=== PATIENT | male | born 1965 ===

== ENCOUNTER → 2017-08-31 11:07 | Emergency (ER) | payer BC ==
[2017-08-31 12:51] VITALS: BP 124/86
--- NOTE | 2017-08-31 12:58 | UC ---
Respiratory Complaint HPI - HPI Summary HPI Summary: Pt presents with a c/o productive cough, that worsens in recumbent position. Pt c/o subjective fever last night, chest and nasal congestion, and generalized malaise X 5 days. - History of Current Complaint Chief Complaint: UCRespiratory Stated Complaint: CHEST CONGESTION,COUGH Time Seen by Provider: 08/31/17 12:40 Hx Obtained From: Patient Onset/Duration: Gradual Onset, Lasting Days, Worse Since - onset Timing: Constant Severity Initially: Mild Severity Currently: Mild Pain Intensity: 0 Character: Cough: Productive Aggravating Factors: Exertion, Deep Breaths, Recumbent Position Alleviating Factors: Nothing Associated Signs And Symptoms: Positive: Fever, Chills, URI, Nasal Congestion - Risk Factors Pulmonary Embolism Risk Factors: Negative Cardiac Risk Factors: Hypertension Pseudomonas Risk Factors: Negative Tuberculosis Risk Factors: Negative - Allergies/Home Medications Allergies/Adverse Reactions: Allergies Allergy/AdvReac Type Severity Reaction Status Date / Time No Known Allergies Allergy Verified 08/31/17 12:43 PMH/Surg Hx/FS Hx/Imm Hx Previously Healthy: Yes Other History Of: Anticoagulant Therapy - ASA 81 mg a night. Negative For: HIV, Hepatitis B, Hepatitis C - Surgical History Surgical History: Yes Surgery Procedure, Year, and Place: shoulder surgery - Family History Known Family History: Positive: Cardiac Disease - Social History Occupation: Employed Full-time Lives: With Family Alcohol Use: Weekly Substance Use Type: None Smoking Status (MU): Never Smoked Tobacco Have You Smoked in the Last Year: No Review of Systems Constitutional: Fever, Chills, Fatigue Skin: Negative Eyes: Negative ENT: Sinus Congestion Respiratory: Cough Cardiovascular: Negative Gastrointestinal: Negative Genitourinary: Negative Motor: Negative Neurovascular: Negative Musculoskeletal: Myalgia Neurological: Negative Psychological: Negative Is Patient Immunocompromised?: No All Other Systems Reviewed And Are Negative: Yes Physical Exam Triage Information Reviewed: Yes Appearance: Ill-Appearing Vital Signs: Initial Vital Signs Temp 98.7 F 08/31/17 12:39 Pulse 88 08/31/17 12:39 Resp 20 08/31/17 12:39 BP 124/86 08/31/17 12:39 Pulse Ox 98 08/31/17 12:39 Vital Signs Reviewed: Yes Eye Exam: Normal ENT Exam: Other ENT: Positive: Nasal congestion Dental Exam: Normal Neck exam: Normal Respiratory Exam: Other Respiratory: Positive: Decreased breath sounds - bases Cardiovascular Exam: Normal Musculoskeletal Exam: Normal Neurological Exam: Normal Psychological Exam: Normal Skin Exam: Normal UC Diagnostic Evaluation - Laboratory O2 Sat by Pulse Oximetry: 98 Respiratory Course/Dx - Differential Dx/Diagnosis Differential Diagnosis/HQI/PQRI: Bronchitis, Influenza Provider Diagnoses: Bronchitis Discharge - Sign-Out/Discharge Documenting (check all that apply): Discharge - Discharge Plan Condition: Stable Disposition: HOME Prescriptions: Azithromycin TAB* [Zithromax TAB (Z-DEL) 250 mg #6 tabs] 2 tab PO .TODAY, THEN 1 DAILY #1 del Benzonatate CAP* [Tessalon 100 MG CAP*] 100 mg PO Q8H PRN #21 cap PRN Reason: Cough predniSONE TAB* [Deltasone TAB*] 30 mg PO DAILY #12 tab Patient Education Materials: Acute Bronchitis (ED) Referrals: Nupur Cardozo PRINCIPAL NETWORK ENGINEER [Primary Care Provider] - If Needed - Billing Disposition and Condition Condition: STABLE Disposition: HOME
== END | disposition home or self-care (01) ==
LOC: UCCORT 11:07
DX: J40 Bronchitis, not specified as acute or chronic (principal)
CPT/HCPCS: 99212; G0463

== ENCOUNTER 2019-04-23 16:00 | Emergency (ER) | payer BC ==
--- OUTSIDE RECORDS SUMMARY | 2019-04-23 16:54 | XMS REPORT | Continuity of Care Document ---
:1965 External Reference #:[id number] Author Name Nupur Cardozo N.P. (transmitted by agent of provider Xenia Ovalles) Address [address], [place] [address] Care Team Providers Name Role Phone Gabriel Garcia MD - Internal Care Team Information Revenue Inspector Medicine Nupur Cardozo NP - Family Care Team Information Revenue Inspector [phone] Naila Lea MD - Internal Medicine Care Team Information Revenue Inspector Problems Active Problems Provider Date Palpitations Willie Colorado M.D. 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 Capsules needed Atorvastatin Calcium take 1 tablet by 30tabs E78.00 Nupur Cardozo, 2018 mouth at bedtime N.P. 20mg Tablets Cheratussin ac take 5-10 473ml R05 Jose Luis Parrish NP 08/13/2018 milliliters every 100-10mg/5ML Syrup 4-6 hours as needed for cough. Flonase Allergy spray 1 spray in 29.7ml Nupur Cardozo, 03/08/2018 Relief each nostril twice N.P. 50mcg/Act daily Suspension Escitalopram Oxalate 1 by mouth every 90tabs F41.1 Nupur Cardozo, 2017 day N.P. 20mg Tablets Meloxicam 1 by mouth every 30tabs M25.552 Lisseth Peraza, 09/21/2017 15mg Tablets day M.D. Ramipril Take 1 Capsule By 90caps I10 Nupur Cardozo, 06/18/2015 5mg Capsules Mouth Daily N.P. Desloratadine take 1 tablet by 90tabs Nupur Cardozo, 5mg mouth once daily N.P. Tablets Multi Adult Gummies 3 by mouth every Unknown day Chewtabs Lysine HCL Unknown 1000mg Tablets Immunizations CPT Code Status Date Vaccine Reaction Lot # [id number] Given 02/16/2019 Influenza Virus Vaccine, Quadrivalent, Split, Preservative Free [id number] Given 02/06/2018 Influenza Virus Vaccine, Quadrivalent, Split, Preservative Free 10229 Given 03/04/2017 Zoster (Zostavax) No immediate [id number] reaction... 06063 Given 02/27/2017 Influenza Virus Vaccine, Quadrivalent, Split, Preservative Free 05922 Given 04/28/2016 Hepatitis A Vaccine Adult no immediate reaction [id number] Dosage noted ... [id number] Given 08/23/2015 Hepatitis A Vaccine Adult [id number] Dosage 04398 Given 02/12/2015 Influenza Virus Vaccine, [id number] Quadrivalent, Split, Preservative Free [id number] Given 02/09/2014 Afluria Vaccine 60986 Given 06/20/2013 Tdap - [id number] Tetanus/Diptheria/Acellular Pertussis 31374 Given 03/02/2010 Influenza Virus 3Yrs & Over 01296 Given 07/21/2001 Td (History By Patient) Vital Signs Date Vital Result Comment 03/22/2019 3:23pm Height 71.5 inches 5'11.50" Weight 230.00 lb Heart Rate 86 /min BP Systolic Sitting 107 mmHg BP Diastolic Sitting 75 mmHg Body Temperature 97.1 F O2 % BldC Oximetry 96 % BMI (Body Mass Index) 31.6 kg/m2 09/06/2018 11:29am Height 72 inches 6'0" Weight 234.00 lb Heart Rate 79 /min BP Systolic 118 mmHg BP Diastolic 70 mmHg Body Temperature 96.9 F O2 % BldC Oximetry 97 % BMI (Body Mass Index) 31.7 kg/m2 Results Test Acquired Date Facility Test Result H/L Range Note CBC Auto 03/08/2019 [facility] White Blood 5.9 10^3/uL Normal 3.5-10.[address] [place] [address] [phone] Red Blood Count 4.90 10^6/uL Normal 4.18-5.48 Hemoglobin 14.7 g/dL Normal 14.0-18.0 Hematocrit 43 % Normal 42-52 Mean Corpuscular Volume 88 fL Normal 80-94 Mean Corpuscular Hemoglobin 30 pg Normal 27-31 Mean Corpuscular HGB Conc 34 g/dL Normal 31-36 Red Cell Distribution Width 14 % Normal 10-15 Platelet Count 163 10^3/uL Normal 150-450 Mean Platelet Volume 9.3 fL Normal 7.4-10.4 Abs Neutrophils 3.9 10^3/uL Normal 1.5-7.7 Abs Lymphocytes 1.4 10^3/uL Normal 1.0-4.8 Abs Monocytes 0.5 10^3/uL Normal 0-0.8 Abs Eosinophils 0.1 10^3/uL Normal 0-0.6 Abs Basophils 0.0 10^3/uL Normal 0-0.2 Abs Nucleated RBC 0.0 10^3/uL Granulocyte % 65.9 % Lymphocyte % 22.8 % Monocyte % 8.8 % Eosinophil % 2.3 % Basophil % 0.2 % Nucleated Red Blood Cells % 0.1 Iron & Iron Binding 03/08/2019 [facility] Iron 94 g/dL Normal 50-[address] [place] [address] [phone] Unsaturated Iron Binding < 363 g/dL Total Iron Binding Capacity 378 g/dL Normal 250-450 Transferrin 270 mg/dL Normal 203-362 % Iron Saturation 25 % Normal 15-55 Laboratory 03/08/2019 [facility] Ferritin 300.0 Normal 24-336 test finding [address] ng/[place] [address] [phone] Lipid Profile 03/08/2019 [facility] Triglycerides 226 mg/dL 1, 2 (Trig/Chol/HDL [address] ) [place] [address] [phone] Cholesterol 228 mg/dL 3 HDL Cholesterol 38.3 mg/dL 4 LDL Cholesterol 145 mg/dL 5 Comp Metabolic 03/08/2019 [facility] Sodium 138 mmol/L Normal 135-[address] [place] [address] [phone] Potassium 4.1 mmol/L Normal 3.5-5.0 Chloride 106 mmol/L Normal 101-111 Co2 Carbon Dioxide 24 mmol/L Normal 22-32 Anion Gap 8 mmol/L Normal 2-11 Glucose 106 mg/dL High 70-100 Blood Urea Nitrogen 21 mg/dL Normal 6-24 Creatinine 0.98 mg/dL Normal 0.67-1.17 BUN/Creatinine Ratio 21.4 High 8-20 Calcium 9.5 mg/dL Normal 8.6-10.3 Total Protein 6.8 g/dL Normal 6.4-8.9 Albumin 4.6 g/dL Normal 3.2-5.2 Globulin 2.2 g/dL Normal 2-4 Albumin/Globulin Ratio 2.1 Normal 1-3 Total Bilirubin 0.70 mg/dL Normal 0.2-1.0 Alkaline Phosphatase 50 U/L Normal 34-104 Alt 20 U/L Normal 7-52 Ast 20 U/L Normal 13-39 Egfr Non- 79.1 >60 Egfr 95.7 >60 6 1 FASTING 10 HOUR 2 Desirable: <150 Borderline High: 150-199 High: 200-499 Very High: >500 3 Desirable: <200 Borderline High: 200-239 High: >239 4 Low: <40 Desirable: 40-60 High: >60 5 Desirable: <100 Near Optimal: 100-129 Borderline High: 130-159 High: 160-189 Very High: >189 6 Because ethnic data is not always readily available, this report includes an eGFR for both -Americans and non- Americans. The National Kidney Disease Education Program (NKDEP) does not endorse the use of the MDRD equation for patients that are not between the ages of 18 and 70, are , have extremes of body size, muscle mass, or nutritional status, or are non- or non-. According to the National Kidney Foundation, irrespective of diagnosis, the stage of the disease is based on the level of kidney function: Stage Description GFR(mL/min/1.73 m(2)) 1 Kidney damage with normal or decreased GFR 90 2 Kidney damage with mild decrease in GFR 60-89 3 Moderate decrease in GFR 30-59 4 Severe decrease in GFR 15-29 5 Kidney failure <15 (or dialysis) Procedures Date Code Description Status 04/27/2017 79477887 Colonoscopy Completed Medical Devices Description No Information Available Encounters Description No Information Available Assessments Date Code Description Provider 03/22/2019 Z00.00 Encounter for general adult medical Nupur Cardozo N.Gustavo examination without abnormal findings 03/22/2019 I10 Essential (primary) hypertension Nupur Cardozo N.PGisselle 03/22/2019 E78.00 Pure hypercholesterolemia, unspecified Nupur Cardozo N.PGisselle 03/22/2019 R73.01 Impaired fasting glucose Nupur Cardozo N.PGisselle 03/22/2019 F41.1 Generalized anxiety disorder Nupur Cardozo N.PGisselle 03/22/2019 M25.552 Pain in left hip Nupur Cardozo NPercy Plan of Treatment Future Appointment(s):09/20/2019 11:00 am - Nupur Cardozo N.P. at [facility] Internal [facility] - [facility]05/02/2019 10:20 am - Nupur Cardozo N.Gustavo at [facility] Internal Medicine - [facility]03/22/2019 - Nupur Cardozo N.GustavoZ00.00 Encounter for general adult medical examination without abnormal findingsComments:For your routine health maintenance: I encourage you to start up with a regular exercise program.Your Tetanus immunization is up to date. You received this in 2013. It is good for 10 years unless you have a major injury, then it is good for 5 years. Your colonoscopy is up to date. You had this in 2016. You will need this repeated in 2026.I10 Essential (primary) hypertensionComments:For your high blood pressure: Continue with your current medication. I would like you to monitor your blood pressure at home. If your readings at home are consistently higher than 140/90, please call the office.Follow up:HTN f/u 6 mo Physical in 1 yearE78.00 Pure hypercholesterolemia, unspecifiedNew Medication: Atorvastatin Calcium 20 mg - take 1 tablet by mouth at bedtimeComments:Your recent labs to check your cholesterol showed that your cholesterol levels are elevated. When I put your numbers into the risk assessment tool your 10 year risk for a cardiovascular event is 8.9%. The [employer] advises treatment for this risk level.R73.01 Impaired fasting glucoseComments: For your elevated blood sugar: Regular exercise and weight reduction will hep decrease your risk of developing diabetes.F41.1 Generalized anxiety disorderComments:For your anxiety:Continue your current management. If at ay time you feel your symptoms are not wellcontrolled, please contact the office.M26.088 Pain in left hipNew Medication:Celecoxib 200 mg - take one capsule by mouth every day as neededComments:To help you with your hip pain I have prescribed Celebrex 200 mg for you.You may take 1 tablet every12 hours as needed. Be sure to stop taking Meloxicam. Functional Status Description No Information Available Mental Status Description No Information Available Referrals Description No Information Available
[2019-04-23 17:11] VITALS: BP 107/92
--- NOTE | 2019-04-23 17:34 | UC ---
Hip/Pelvis Pain - HPI Summary HPI Summary: Pt presents with sudden onset of right low back, hip, and thigh pain that began after picking up heavy bags of water softening salt. Pt is scheduled for left hip replacement on 05/21/18 in [place]. Pt states pain radiates from low back to right posterior and anterior thigh and inguinal area. Pt has been taking celebrex, stretching, applying ice and heat to area with no improvement of pain. Pt uses crutches to ambulate due to left hip pain. - History Of Current Complaint Chief Complaint: UCLowerExtremity Stated Complaint: RIGHT LOW BACK Time Seen by Provider: 04/23/19 17:14 Hx Obtained From: Patient Onset/Duration: Sudden Onset, Lasting Days, Still Present, Worse Since - onset Timing: Constant Severity Initially: Severe Severity Currently: Moderate Pain Intensity: 8 Location: Diffuse Character Of Pain: Dull, Aching, Throbbing, Stiffness, Burning Aggravating Factor(s): Movement, Weight Bearing Alleviating Factor(s): Nothing Associated Signs And Symptoms: Positive: Weakness - Risk Factors Septic Arthritis Risk Factor: Pre-existing Joint Disease - left hip - Allergies/Home Medications Allergies/Adverse Reactions: Allergies Allergy/AdvReac Type Severity Reaction Status Date / Time No Known Allergies Allergy Verified 04/23/19 16:57 Home Medications: Home Medications Aspirin EC TAB* [Ecotrin EC Low Dose 81 MG*] 1 tab DAILY 04/23/19 [History Confirmed 04/23/19] Atorvastatin* [Lipitor 20 MG*] 20 mg PO QPM 04/23/19 [History Confirmed 04/23/19 ] Desloratadine 5 mg DAILY 04/23/19 [History Confirmed 04/23/19] Escitalopram * [Lexapro *] 20 mg PO DAILY 04/23/19 [History Confirmed 04/23/19] Lysine 1,000 mg PO DAILY 04/23/19 [History Confirmed 04/23/19] Melatonin 1 tab DAILY 04/23/19 [History Confirmed 04/23/19] Ramipril CAP* [Altace CAP*] 5 mg PO DAILY 04/23/19 [History Confirmed 04/23/19] celeCOXIB CAP* [Celebrex CAP*] 200 mg PO DAILY 04/23/19 [History Confirmed 04/23] PMH/Surg Hx/FS Hx/Imm Hx Previously Healthy: Yes Other History Of: Anticoagulant Therapy - ASA 81 mg a night. Negative For: HIV, Hepatitis B, Hepatitis C - Surgical History Surgical History: Yes Surgery Procedure, Year, and Place: shoulder surgery - Family History Known Family History: Positive: None, Cardiac Disease - Social History Occupation: Employed Part-time, Retired Lives: With Family Alcohol Use: Weekly Substance Use Type: None Smoking Status (MU): Never Smoked Tobacco Have You Smoked in the Last Year: No - Immunization History Vaccination Up to Date: Yes Review of Systems All Other Systems Reviewed And Are Negative: Yes Constitutional: Positive: Negative Skin: Positive: Negative Eyes: Positive: Negative ENT: Positive: Negative Respiratory: Positive: Negative Cardiovascular: Positive: Negative Gastrointestinal: Positive: Negative Genitourinary: Positive: Negative Motor: Positive: Decreased ROM - bilateral hips, right side low back Neurovascular: Positive: Negative Musculoskeletal: Positive: Arthralgia, Decreased ROM - pain with ROM, Myalgia Neurological: Positive: Negative Psychological: Positive: Negative Is Patient Immunocompromised?: No Physical Exam Triage Information Reviewed: Yes Appearance: Pain Distress Vital Signs: Initial Vital Signs Temp 98.4 F 04/23/19 17:01 Pulse 95 04/23/19 17:01 Resp 16 04/23/19 17:01 BP 107/92 04/23/19 17:01 Pulse Ox 100 04/23/19 17:01 Vital Signs Reviewed: Yes Eye Exam: Normal ENT: Positive: Hearing grossly normal Dental Exam: Normal Neck exam: Normal Respiratory: Positive: No respiratory distress Musculoskeletal: Positive: Strength Limited @ - right hip and low back, ROM Limited @ - right hip and low back Neurological Exam: Normal Psychological Exam: Normal Skin Exam: Normal Hip Injury Course/Dx - Differential Dx/Diagnosis Differential Diagnosis/HQI/PQRI: Sciatica, Other - disc disorder Provider Diagnosis: Back pain with right-sided sciatica Discharge ED - Sign-Out/Discharge Documenting (check all that apply): Patient Departure All imaging exams completed and their final reports reviewed: No Studies - Discharge Plan Condition: Stable Disposition: HOME Prescriptions: Cyclobenzaprine TAB* [Flexeril 10 MG TAB*] 10 mg PO Q8H PRN #15 tab PRN Reason: Pain - Mild oxyCODONE/Acetamin 5/325 MG* [Percocet 5/325 TAB*] 1 tab PO Q6H PRN #20 tab MDD 4 tabs PRN Reason: Pain - Mild Patient Education Materials: Sciatica (ED), Hip Pain (ED), Lower Back Exercises (ED) Referrals: Nupur Cardozo NP [Primary Care Provider] - If Needed Additional Instructions: Please follow up with your Orthopedic provider as soon as needed - Billing Disposition and Condition Condition: STABLE Disposition: Home
== END 2019-04-23 17:50 | disposition home or self-care (01) ==
LOC: UCCORT 16:00
DX: M54.41 Lumbago with sciatica, right side (principal); Z79.82 Long term (current) use of aspirin
CPT/HCPCS: 99212; G0463